=== PATIENT | female | born 1955 | race Caucasian/White ===

== ENCOUNTER → 2016-05-13 | Outpatient (CLI) | payer OTHER ==
[~2016-05-13] MED LIST: ALBU17I INH; AMBI5TAB PO; DICL1TAB63 PO; ESTR1TAB PO; IBUP200T2 PO; LORA-373 PO; LORA0.5T PO; MECL-62 PO; MEDR2.5T2 PO; POTA595T PO; PRAV40TA PO; PRAV40TA2 PO; PROV2.5T PO; REST30CA PO; TEMA30CA PO; VITA100018 PO; VITA2000 PO
[2016-05-13 07:31] LABS: HEMATOCRIT 37.3 % (35.0-46.0); MEAN CELL VOLUME 91.1 FL (80.0-100.0); MEAN CORPUSCULAR HEMOGLOBIN 31.7 PG (27.0-34.0); MEAN CORPUSCULAR HGB CONC 34.7 % (32.0-36.0); PLATELET COUNT 300 TH/MM3 (150-450); RED CELL DISTRIBUTION WIDTH 12.4 % (11.6-17.2); REVIEW FLAG FINAL; WHITE BLOOD COUNT 5.5 TH/MM3 (4.0-11.0)
[2016-05-13 07:50] LABS: POTASSIUM 3.6 MEQ/L (3.5-5.1)
[2016-05-13 08:01] LABS: HDL CHOLESTEROL 69.7 MG/DL (40.0-60.0); INDIRECT BILIRUBIN 0.8 MG/DL (0.0-0.8); TOTAL BILIRUBIN ADULT 0.9 MG/DL (0.2-1.0)
[2016-05-13 09:17] LABS: BACTERIA, URINE FEW /hpf; BLOOD, URINE TRACE (NEG); COMMENT (UR) CULT NOT INDICATED; CULTURE IF INDICATED CULT NOT INDICATED; GLUCOSE,URINE NEG (NEG); KETONE, URINE NEG (NEG); MUCUS URINE FEW /lpf (OCC); NITRITE,URINE NEG (NEG); PH, URINE 5.5 (5.0-8.5); SQUAMOUS EPITHELIAL CELL URINE 27 /hpf (0-5); TRANSITIONAL EPI CELLS, URINE <1 /hpf; URINE COLOR YELLOW (YELLW/STRAW)
== END ==
LOC: CLAB 06:53
PROVIDERS: ATTEND Family Medicine
DX: Z00.01 Encounter for general adult medical examination with abnormal findings (principal); Z11.59 Encounter for screening for other viral diseases
CPT/HCPCS: 36415; 80048; 80061; 80076; 81001; 84443; 85027; 86803

== ENCOUNTER → 2016-06-11 | Outpatient (CLI) | payer OTHER ==
[2016-06-11 13:08] LABS: INTERNATIONAL NORMALIZED RATIO 0.9 RATIO; PROTHROMBIN TIME - PATIENT 10.2 SEC (9.8-11.6)
[2016-06-11 13:09] LABS: BLOOD, URINE NEG (NEG); COMMENT (UR) CULT NOT INDICATED; CULTURE IF INDICATED CULT NOT INDICATED; GLUCOSE,URINE NEG (NEG); KETONE, URINE NEG (NEG); MUCUS URINE FEW /lpf (OCC); NITRITE,URINE NEG (NEG); PH, URINE 6.5 (5.0-8.5); SQUAMOUS EPITHELIAL CELL URINE 2 /hpf (0-5); URINE COLOR LIGHT-YELLOW (YELLW/STRAW)
--- NOTE | 2016-06-11 13:27 | RADRPT ---
EXAM DATE/TIME: 06/11/2016 13:05 [facility] COMPARISON: No previous studies available for comparison. INDICATIONS : Rule out communicable diseases. MEDICAL HISTORY : None. SURGICAL HISTORY : None. ENCOUNTER: Initial ACUITY: 1 day PAIN SCORE: 0/10 LOCATION: Bilateral chest FINDINGS: PA and lateral views of the chest demonstrate the lungs to be symmetrically aerated without evidence of mass, infiltrate or effusion. The cardiomediastinal contours are unremarkable. Osseous structure s are intact. CONCLUSION: No evidence of acute cardiopulmonary disease. Genaro Knott MD on June 11, 2016 at 13:25 Board Certified Radiologist. This report was verified electronically.
[2016-06-11 13:30] LABS: BICARBONATE 28.4 MEQ/L (21.0-32.0); POTASSIUM 3.7 MEQ/L (3.5-5.1)
== END ==
LOC: CPRE 11:29
PROVIDERS: ATTEND Orthopaedic Surgery
DX: Z01.812 Encounter for preprocedural laboratory examination (principal); S83.271D Complex tear of lateral meniscus, current injury, right knee, subsequent encounter
CPT/HCPCS: 36415; 71020; 80048; 81001; 85610

== ENCOUNTER → 2016-06-25 | Day surgery (SDC) | payer OTHER ==
--- NOTE | 2016-06-14 19:00 | MH ---
cc: LALITHA GARSIA M.D. DATE OF ADMISSION 06/25/2016 ADMITTING DIAGNOSIS Complex tear of the lateral meniscus right knee, chondromalacia right knee, chondromalacia patellae right knee, effusion right knee, loose body right knee. pain right knee. HISTORY OF THE PRESENT ILLNESS The patient is a 61-year-old white female who has had a lengthy history of pain involving her right knee. Her history extended back to approximately 12 years of age when she reports sustaining a fracture of her right knee which was treated by cast immobilization. Following this injury the patient was aware of stiffness about her knee for which she conformed to an exercise program under her own supervision. She did reasonably well for a number of years thereafter until the past two or more years when she began to experience generalized discomfort about her right knee unrelated to any current injury. She reports undergoing orthopedic evaluation at that time and was treated with repeated cortisone injections numbering at least five in total with only temporary benefit described. In January of 2015 she began to note increasing pain and swelling about her right knee for which she underwent additional orthopedic evaluation with repeat injection that unfortunately did not prove to be of any benefit. She continued to experience discomfort and subsequently underwent a CT scan which identified osteoarthritic findings with an associated joint effusion. The patient was later seen by the undersigned physician in April of 2015 and at that time her x-ray studies did reveal some narrowing about the medial compartment consistent with a localized degenerative process. The patient was prescribed diclofenac 75 mg and was followed on an outpatient basis thereafter. When seen in follow-up disposition she felt that the medication was affording her some benefit but did have an episode of elevated blood pressure that she was uncertain as to whether not may have been a side-effect of the medication. She did express her desire to proceed with a more definitive evaluation of her knee symptoms and thus, recommendation was made to undergo MRI scan examination the results of which identified osteoarthritic findings with a moderate-sized osteophyte and chondromalacia of a tricompartmental nature, a complex tear involving the anterior horn and body of the lateral meniscus was noted. A small joint effusion as well as a 7 mm intra-articular loose body was identified. The patient continued to note symptoms involving her right knee and expressed her desire to proceed with more definitive course of treatment. Involvement of arthroscopic surgery was outlined in detail with emphasis being made that the decision to proceed with surgery would be left entirely to the patient's discretion and that such an undertaking would not serve as a long-term solution to her underlying arthritic process. The patient indicated her full understanding in this regard and expressed her desire to proceed accordingly for which she is currently being admitted to the hospital in order that the above be accomplished. PAST MEDICAL HISTORY Her past medical history, hospitalizations and surgeries have included: 1. section. 2. Colonoscopy. 3. Excision of multiple skin cancers of the right upper extremity. 4. And medical evaluation for a suspected TIA with no positive findings being noted. The patient's current medical illnesses include: 1. A history of depression. 2. Asthma. MEDICATIONS Her current medications: 1. Diclofenac 75 mg. 2. Lorazepam 0.5 mg. 3. Estradiol 1 mg. 4. Medroxyprogesterone 2.5 mg. 5. Temazepam 30 milligrams. 6. Potassium gluconate 595 milligrams. 7. Vitamin D3 2000 international units. 8. Pravastatin 40 mg. 9. She also takes ibuprofen 200 mg p.r.n. ALLERGIES THE PATIENT DESCRIBES A DRUG ALLERGY TO BOTH PERCOCET AND PERCODAN BOTH OF WHICH HAVE BEEN ASSOCIATED WITH ITCHING. SHE HAS TOLERATED LORTAB WITHOUT ADVERSE SIDE EFFECT BEING NOTED. REVIEW OF SYSTEMS She does wear glasses. Denies headache, seizure or syncope. Occasional sinus congestion. No epistaxis. Auditory acuity intact. No tinnitus. No bleeding gums or dysphagia. Denies cough, shortness of breath, upper respiratory infection or pneumonia. No tuberculosis. No angina or heart disease. Her appetite is good. Bowel movements are regular. No hepatitis, gallbladder disease, ulcers or hemorrhoids. There is a history for urinary tract infection. No kidney stones. Fracture of her right knee and her left wrist treated nonoperatively. Psychiatric intervention for depression. Remaining review of systems is unremarkable and noncontributory. FAMILY HISTORY The patient has been for 20 years. She has a 38-year-old son who is indicated to be in good health. Family history is otherwise positive for hypertension and skin cancer. SOCIAL HISTORY The patient completed a high school education. 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 Denies active use of tobacco and ethanol. PHYSICAL EXAMINATION VITAL SIGNS: Height 5 feet 2 inches, weight 131 pounds. GENERAL: An alert, oriented and responsive 61-year-old white female who sits quietly upon examination table with no obvious distress. HEENT: Pupils are equal, round and reactive to light. Extraocular movements full. Sclerae clear. External nares clear. External auditory canals clear. Dental intact. Mucous membranes pink and moist. Pharynx clear. NECK: Supple. Active range of motion with no appreciable pain. Carotid pulse bilaterally. Trachea midline. Thyroid without enlargement. LUNGS: Clear to auscultation and percussion. No CVA tenderness. No discomfort throughout the dorsal lumbar spine. HEART: Regular rhythm. No murmur or gallop. ABDOMEN: Soft, nontender. Bowel sounds present. PELVIC: Per primary care physician. EXTREMITIES: Right knee no significant swelling or effusion. There is limited mobility at the extreme of flexion and mild discomfort associated. No collateral ligamentous instability. Apprehension and compression sign negative. There is lateral joint line tenderness without palpable deformity. Magdalena test and drawer sign negative. Pivot shift and Suraj sign positive for lateral compartment pain. Straight-leg raising unremarkable at 80 degrees. Independent gait. NEUROLOGICAL: Cranial nerves II-XII grossly intact. IMPRESSION Complex tear lateral meniscus right knee, chondromalacia right knee, chondromalacia patellae right knee, effusion right knee, loose body right knee, pain right knee. PLAN Arthroscopic surgery and possible arthrotomy right knee. The nature of the planned surgical procedure, the potential complications and risks associated, the expectations of surgery and the consent form were thoroughly reviewed with the patient prior to her admission to the hospital. Merari has indicated her full understanding regarding all of the above and given consent to proceed with treatment as outlined. Medical evaluation and clearance for surgery will be completed by her primary care physician Dr. Silvano Turner. MD ERIK Godoy/BELINDA /4:52 PM /5:38 PM
[~2016-06-25] VITALS: Ht 157.5 cm; Wt 59.9 kg
[~2016-06-25] MED LIST changes: +*morphine SULFATE 8 MG/ML PERIprocedure ONLY ONE; +ACETAMINOPHEN 1000 MG/100 ML VIAL IV ONE; +ACETAMINOPHEN/HYDROcodone 325 MG/5 MG TAB PO PRN; -ALBU17I INH; -AMBI5TAB PO; +DEXAMETHASONE SOD PHOS 4 MG/ML VIAL ONE; +DO NOT ADM ANY ANTICOAGULANT DRUGS XX PRN; +INSULIN HUMAN REGULAR 1,000 UNITS/10 ML VIAL SQ PRN; +KETOROLAC TROMETHAMINE 60 MG/2 ML (IM) VIAL IM ONE; +LACTATED RINGER'S 1000 ML IV SCH; +LIDOCAINE HCL 2% 20 ML VIAL INFIL ONE; -LORA0.5T PO; -MECL-62 PO; +METOPROLOL TARTRATE 25 MG TAB PO PRN; +MIDAZOLAM HCL 2 MG/2 ML VIAL ONE; +MORPHINE SULFATE 8 MG/ML INJ IM PRN; +ONDANSETRON HCL 4 MG/2 ML VIAL IV PUSH ONE; +POVIDONE IODINE 7.5% SCRUB 118 ML BOTTLE TOP SCH; -PRAV40TA PO; +PROPOFOL 200 MG/20 ML AMP IV ONE; -PROV2.5T PO; -REST30CA PO; +SODIUM CHLORID 0.9% 500 ML IV SCH; +TRIAMCINOLONE ACETONIDE 40 MG/ML VIAL I-SYNOVIAL ONE; -VITA100018 PO; +ceFAZolin 2 GM PREMIX 50 ML IV SCH; +ceFAZolin 2 GM PREMIX 50 ML ONE; +ePHEDrine/NS 25 MG/5 ML SYR IV ONE
[2016-06-25 08:33] VITALS: BP 145/96; PULSE 83; RESP 18; TEMP 98.9; O2SAT 100
[2016-06-25 13:05] VITALS: BP 158/65; PULSE 81; RESP 16; TEMP 97.5; O2SAT 97
--- NOTE | 2016-06-29 11:07 | MP ---
cc: LALITHA FINE DATE OF SURGERY 06/25/2016 PREOPERATIVE DIAGNOSIS A complex tear of the lateral meniscus right knee, chondromalacia right knee, chondromalacia patellae right knee, effusion right knee, loose body right knee, pain right knee. POSTOPERATIVE DIAGNOSIS A complex tear of the lateral meniscus right knee, chondromalacia right knee, chondromalacia patellae right knee, effusion right knee, loose body right knee, pain right knee including degenerative tear medial meniscus right knee. PROCEDURE Partial medial and lateral meniscectomy right knee with tricompartmental chondroplasty. SURGEON Lalitha Fine MD ANESTHESIA General by LMA FORMAT Following the induction of satisfactory general anesthesia by LMA insertion as completed per the Department of Anesthesia, examination of the right knee did reveal a satisfactory range of motion with no appreciable ligamentous instability. The extremity proper was positioned into the server service assistant knee rosenberg, prepped with Betadine solution and draped into a sterile field in the routine manner. Prior to initiation of the actual procedure, the standard time-out protocol was completed. All parameters were appropriately addressed and confirmed by operating room personnel. Arthroscopic instrumentation was introduced through a stab wound utilizing cannula with sharp and blunt trocar, the inflow irrigation by way of a medial suprapatellar portal, the arthroscope through a lateral parapatellar portal, a probe through a medial parapatellar portal. Examination of the suprapatellar pouch revealed significant synovial proliferation with reactive synovitis throughout. There were degenerative changes involving the patellofemoral articulation with several areas of complete erosion of articular cartilage along the femoral condyle. Within the medial compartment, a degenerative type tear of the medial meniscus was identified with associated cartilaginous irregularity involving both femoral condyle and tibial plateau. Fraying of the anterior cruciate ligament within the intercondylar region was appreciated with proliferative synovium extending into this area. Within the lateral compartment, a complex tear involving the body and anterior horn of the lateral meniscus was noted with associated degenerative changes throughout the lateral compartment. Utilizing a 3.8 aggressive resector, a partial lateral meniscectomy was accomplished, as well as chondroplasty debridement of femoral condyle and tibial plateau. Limited debridement within the intercondylar region as attention was directed to the medial compartment where the degenerative tear of the medial compartment was addressed by a partial meniscectomy with additional chondroplasty debridement throughout the medial compartment. The shaver was thereafter oriented into the suprapatellar region were reactive synovium was resected, as well as a chondroplasty of the patellofemoral joint. Upon completion of same, the joint space was thoroughly lavaged and suctioned dry. Arthroscopic portal sites were reapproximated with Steri-Strips over which Xeroform gauze and a bulky dry sterile dressing were placed. Anesthesia was discontinued and the patient thus transferred to a hospital stretcher and returned to the recovery room in satisfactory condition having tolerated her operative procedure well. Estimated blood loss was approximately 10 cc. MD ERIK Godoy/ISH /11:43 AM /10:59 AM
== END | disposition home or self-care (01) ==
LOC: HSDC 07:11
PROVIDERS: ATTEND Orthopaedic Surgery
DX: S83.271A Complex tear of lateral meniscus, current injury, right knee, initial encounter (principal); M94.261 Chondromalacia, right knee; M25.461 Effusion, right knee; M25.561 Pain in right knee; S83.203A Other tear of unspecified meniscus, current injury, right knee, initial encounter
CPT/HCPCS: 01400; 29880; G0289; J0131; J0690; J1100; J1885; J2250; J2270; J2405; J3010; J3301

== ENCOUNTER 2016-10-11 03:57 | Emergency (ER) | payer OTHER ==
[~2016-10-11] VITALS: Ht 167.6 cm; Wt 67.0 kg
[~2016-10-11 03:57] MED LIST changes: -*morphine SULFATE 8 MG/ML PERIprocedure ONLY ONE; -ACETAMINOPHEN 1000 MG/100 ML VIAL IV ONE; -ACETAMINOPHEN/HYDROcodone 325 MG/5 MG TAB PO PRN; -DEXAMETHASONE SOD PHOS 4 MG/ML VIAL ONE; -DO NOT ADM ANY ANTICOAGULANT DRUGS XX PRN; -INSULIN HUMAN REGULAR 1,000 UNITS/10 ML VIAL SQ PRN; -KETOROLAC TROMETHAMINE 60 MG/2 ML (IM) VIAL IM ONE; -LACTATED RINGER'S 1000 ML IV SCH; -LIDOCAINE HCL 2% 20 ML VIAL INFIL ONE; -METOPROLOL TARTRATE 25 MG TAB PO PRN; -MIDAZOLAM HCL 2 MG/2 ML VIAL ONE; -MORPHINE SULFATE 8 MG/ML INJ IM PRN; -ONDANSETRON HCL 4 MG/2 ML VIAL IV PUSH ONE; -POVIDONE IODINE 7.5% SCRUB 118 ML BOTTLE TOP SCH; -PROPOFOL 200 MG/20 ML AMP IV ONE; -SODIUM CHLORID 0.9% 500 ML IV SCH; -TRIAMCINOLONE ACETONIDE 40 MG/ML VIAL I-SYNOVIAL ONE; -ceFAZolin 2 GM PREMIX 50 ML IV SCH; -ceFAZolin 2 GM PREMIX 50 ML ONE; -ePHEDrine/NS 25 MG/5 ML SYR IV ONE
[2016-10-11 03:59] VITALS: BP 183/77; PULSE 85; RESP 16; TEMP 98; O2SAT 100
--- NOTE | 2016-10-11 04:17 | PD ---
HPI Chief Complaint: Edema Time Seen by Provider: 04:16 Travel History International Travel<30 days: No Contact w/Intl Traveler<30days: No Traveled to known affect area: No History of Present Illness HPI 61-year-old female came to the emergency room with significant pain in the bilateral lower extremity mainly her feet. Patient says that this has been going on for past week or so but worse last night which made it very difficult for her to fall asleep. I decided to come to the emergency room. 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 She says she has mentioned this to her primary care wanted to get an ultrasound done. Patient had a meniscal tear repair done few weeks ago of her right knee. She has history of Roman cyst behind her left knee. No history of chest pain or shortness of breath. She was hypertensive in triage upon arrival. [facility] Past Medical History Narrative Medical List of her past medical, surgical, social and family history is reviewed from the nursing note. Arthritis: Yes (NECK) Asthma: Yes Anxiety: Yes Depression: Yes Cancer: Yes (skin cancer) Cardiovascular Problems: No High Cholesterol: Yes Diabetes: No Diminished Hearing: No Endocrine: No Genitourinary: No Hepatitis: No Hiatal Hernia: No Immune Disorder: No Musculoskeletal: Yes (arthritis, bulging disc in neck) Neurologic: Yes (poss tia 10 years ago, temporary loss of partial vision and speech) Psychiatric: Yes (anxiety) Reproductive: No Respiratory: Yes (asthma) Seizures: Yes Thyroid Disease: No Menopausal: Yes : 1 Para: 1 Past Surgical History Abdominal Surgery: Yes (c section) Body Medical Devices: none, belly button ring taped Cardiac Surgery: No Section: Yes Ear Surgery: No Endocrine Surgery: No Eye Surgery: No Genitourinary Surgery: No Gynecologic Surgery: No Joint Replacement: No Oral Surgery: No Pacemaker: No Thoracic Surgery: No Social History Alcohol Use: Yes Tobacco Use: No Substance Use: No Allergies-Medications (Allergen,Severity, Reaction): Coded Allergies: Latex (Verified Allergy, Severe, Hives, 10/11/16) severe skin irritation Percocet (Verified Allergy, Severe, Itching, 10/11/16) Percodan (Verified Allergy, Severe, Itching, 10/11/16) Comments List of her allergies reviewed from the nursing note. Reported Meds & Prescriptions Reported Meds & Active Scripts Active Gabapentin 300 Mg Cap 300 Mg PO BID Reported Meloxicam 15 Mg Tab 15 Mg PO DAILY Celecoxib 200 Mg Cap 200 Mg PO DAILY [place] (Hydrocodone-Acetaminophen) 5-325 mg Tab 1 Tab PO DAILY PRN Ibuprofen 200 Mg Tab 200 Mg PO Q6H PRN Pravastatin 40 Mg Tab 40 Mg PO HS Vitamin D3 (Cholecalciferol) 2,000 Unit Cap 2,000 Units PO DAILY Potassium Gluconate 595 Mg Tab 1 Tab PO DAILY Temazepam 30 Mg Cap 30 Mg PO HS PRN Estradiol 1 Mg Tab 1 Mg PO DAILY Lorazepam 0.5 Mg Tab 0.5 Mg PO DAILY PRN Diclofenac-Misoprostol 75-0.2 Mg Tab 1 Tab PO BID Narrative Medication Just of her home medications reviewed from the nursing note. Review of Systems Except as stated in HPI: all other systems reviewed are Neg Physical Exam Narrative GENERAL: Awake, alert, moderate distress SKIN: Focused skin assessment warm/dry. HEAD: Atraumatic. Normocephalic. EYES: Pupils equal and round. No scleral icterus. No injection or drainage. ENT: No nasal bleeding or discharge. Mucous membranes pink and moist. NECK: Trachea midline. No JVD. CARDIOVASCULAR: Regular rate and rhythm. No murmur appreciated. RESPIRATORY: No accessory muscle use. Clear to auscultation. Breath sounds equal bilaterally. GASTROINTESTINAL: Abdomen soft, non-tender, nondistended. Hepatic and splenic margins not palpable. MUSCULOSKELETAL: No obvious deformities. No clubbing. No cyanosis. No edema. Right leg looks more swollen than the left. Good range of motion in both knee and ankle joints. Intact pulses and sensation distally. NEUROLOGICAL: Awake and alert. No obvious cranial nerve deficits. Motor grossly within normal limits. Normal speech. PSYCHIATRIC: Appropriate mood and affect; insight and judgment normal. Data Data Last Documented VS Vital Signs Date Time Temp Pulse Resp B/P Pulse Ox O2 Delivery O2 Flow Rate FiO2 10/11/16 04:47 74 15 150/70 100 Room Air 10/11/16 03:59 98.0 Orders Us Leg Venous Doppler Bilat (10/11/16 ) Ketorolac Inj (Toradol Inj) (10/11/16 04:30) MDM Medical Decision Making Medical Screen Exam Complete: Yes Emergency Medical Condition: Yes Medical Record Reviewed: Yes Differential Diagnosis DVT, arthritis, peripheral neuropathy Narrative Course 6:37 AM ultrasound of her bilateral legs show no DVT. Patient was given IM Toradol for pain. I'll discharge her home. She'll need to follow up with her primary care outpatient. Procedures EKG Prior to Arrival: No Diagnosis Primary Impression: Leg pain, bilateral Referrals: Primary Care Physician Additional Instructions: Please return to the ER if the condition worsens or any other new concerns. Otherwise follow-up with your primary care in next couple days. Take the medication as per the prescription direction. Med/Other Pt SpecificInfo: Prescription(s) given Scripts Gabapentin 300 Mg [id number] Mg PO BID #30 CAP Ref 0 Prov:Madisyn Randle MD 10/11/16 Disposition: 01 DISCHARGE HOME Condition: Stable Madisyn Randle MD Oct 11, 2016 04:16 Madisyn Randle MD Oct 11, 2016 04:16
[2016-10-11] MEDS ORDERED: KETOROLAC TROMETHAMINE 60 MG/2 ML (IM) VIAL IM ONE (04:30)
[2016-10-11] MEDS ORDERED: CELE1CAP8 PO (04:43)
[2016-10-11] MEDS ORDERED: MELO-1 PO (04:43)
[2016-10-11] MEDS ORDERED: NORC5TAB PO (04:43)
[2016-10-11 04:47] VITALS: BP 150/70; PULSE 74; RESP 15; O2SAT 100
--- NOTE | 2016-10-11 06:30 | RADRPT ---
EXAM DATE/TIME: 10/11/2016 05:36 [facility] COMPARISON: No previous studies available for comparison. INDICATIONS : Bilateral leg swelling. MEDICAL HISTORY : Hypercholesterolemia. . Arthritis. Seizures. Asthma. Depression. Anxiety. Skin cancer. SURGICAL HISTORY : section. Right knee surgery. ENCOUNTER: Initial ACUITY: 2 months PAIN SCORE: 4/10 LOCATION: Bilateral legs. TECHNIQUE: Venous ultrasound of the left and right leg was performed from the inguinal ligament to the proximal calf. Real-time, color Doppler and spectral tracing, compression and augmentation techniques were us ed. FINDINGS: RIGHT LEG: There is normal compressibility of the deep venous system from the inguinal region to the proximal ca lf. No echogenic clot is seen in the lumen of the common femoral, femoral, popliteal, and posterior tibial veins. There is a normal response of the venous system to proximal and distal augmentation an d respiration. LEFT LEG: There is normal compressibility of the deep venous system from the inguinal region to the proximal ca lf. No echogenic clot is seen in the lumen of the common femoral, femoral, popliteal, and posterior tibial veins. There is a normal response of the venous system to proximal and distal augmentation an d respiration. CONCLUSION: Normal examination. Bobby Terrell MD on October 11, 2016 at 6:29 Board Certified Radiologist. This report was verified electronically.
[2016-10-11] MEDS ORDERED: GABA300C5 PO (06:39)
== END 2016-10-11 06:53 | disposition home or self-care (01) ==
LOC: NEPC 03:57
DX: M79.605 Pain in left leg (principal); M79.604 Pain in right leg; J45.909 Unspecified asthma, uncomplicated; M13.80 Other specified arthritis, unspecified site; F41.9 Anxiety disorder, unspecified; F32.9 Major depressive disorder, single episode, unspecified; E78.00 Pure hypercholesterolemia, unspecified; R56.9 Unspecified convulsions; Z79.899 Other long term (current) drug therapy
CPT/HCPCS: 93970; 96372; 99285; J1885

== ENCOUNTER → 2016-10-15 | Outpatient (CLI) | payer OTHER ==
[~2016-10-15] MED LIST changes: +CELE1CAP8 PO; +GABA300C5 PO; -MEDR2.5T2 PO; +MELO-1 PO; +NORC5TAB PO
[2016-10-15 07:30] LABS: AUTOMATED NEUTROPHIL # 3.1 TH/MM3 (1.8-7.7); BASOPHIL % 0.7 % (0.0-2.0); EOSINOPHIL # 0.2 TH/MM3 (0-0.4); HEMATOCRIT 40.2 % (35.0-46.0); HEMO FLAGS DIFF FINAL; LYMPH % 33.6 % (9.0-44.0); MEAN CELL VOLUME 91.4 FL (80.0-100.0); MEAN CORPUSCULAR HGB CONC 32.8 % (32.0-36.0); NEUT % 52.7 % (16.0-70.0); PLATELET COUNT 288 TH/MM3 (150-450); RED CELL DISTRIBUTION WIDTH 12.7 % (11.6-17.2); WHITE BLOOD COUNT 5.9 TH/MM3 (4.0-11.0)
[2016-10-15 07:48] LABS: ANION GAP 8 MEQ/L (5-15); AST (GOT) 20 U/L (15-37); BICARBONATE 28.5 MEQ/L (21.0-32.0); BLOOD UREA NITROGEN 24 MG/DL (7-18); CHLORIDE 106 MEQ/L (98-107); GLOMERULAR FILTRATION RATE 85 ML/MIN (>89); GLUCOSE,FASTING 93 MG/DL (74-99); SODIUM (NA) 142 MEQ/L (136-145)
[2016-10-15 07:49] LABS: ALT (GPT) 18 U/L (10-53)
[2016-10-15 07:52] LABS: ALKALINE PHOSPHATASE 75 U/L (45-117); TOTAL BILIRUBIN ADULT 0.6 MG/DL (0.2-1.0)
== END ==
LOC: CLAB 06:47
PROVIDERS: ATTEND Family Medicine
DX: R60.0 Localized edema (principal)
CPT/HCPCS: 36415; 80053; 85025

== ENCOUNTER → 2016-11-02 | Outpatient (CLI) | payer OTHER ==
[2016-11-02 08:20] LABS: PROTHROMBIN TIME - PATIENT 10.5 SEC (9.8-11.6)
[2016-11-02 08:35] LABS: TRANSFERRIN IRON PROFILE 281 MG/DL (200-360)
[2016-11-04 03:51] LABS: RHEUMATOID FACTOR 9 IU/mL (<14)
[2016-11-04 09:52] LABS: VITAMIN B6 5.9 ng/mL (2.1-21.7)
[2016-11-04 11:52] LABS: COAG FACTOR VIII 162 (50-180)
[2016-11-04 17:52] LABS: VWF AG 181 % (50-217)
[2016-11-04 19:54] LABS: LYME DISEASE 18KD IGG BAND NON-REACTIVE (()); LYME DISEASE 23 IGG BAND REACTIVE (()); LYME DISEASE 23KD IGM BAND NON-REACTIVE (()); LYME DISEASE 28KD IGG BAND REACTIVE (()); LYME DISEASE 30KD IGG BAND NON-REACTIVE (()); LYME DISEASE 39 KD IGG BAND NON-REACTIVE (()); LYME DISEASE 39KD IGM BAND NON-REACTIVE (()); LYME DISEASE 41KD IGG BAND REACTIVE (()); LYME DISEASE 41KD IGM BAND NON-REACTIVE (()); LYME DISEASE 45KD IGG BAND NON-REACTIVE (()); LYME DISEASE 58KD IGG BAND NON-REACTIVE (()); LYME DISEASE 66KD IGG BAND REACTIVE (()); LYME DISEASE 93KD IGG BAND NON-REACTIVE (()); LYME DISEASE IGM WB NEGATIVE (())
[2016-11-05 03:52] LABS: DS DNA AB(CRITHIDIA) NEGATIVE (NEGATIVE); DS DNA AB(CRITHIDIA)TITER ND (<1:10)
[2016-11-07 03:52] LABS: ANA IFA PATTERN ND (()); ANA IFA TITER ND titer (()); ANA SER QL NEGATIVE (NEGATIVE); SJOGRENS AB SSA <1.0 NEG AI (<1.0 NEGATIVE); SJOGRENS AB SSB <1.0 NEG AI (<1.0 NEGATIVE)
== END ==
LOC: CLAB 07:25
PROVIDERS: ATTEND Family Medicine
DX: G60.9 Hereditary and idiopathic neuropathy, unspecified (principal); K06.8 Other specified disorders of gingiva and edentulous alveolar ridge; M79.605 Pain in left leg; R53.81 Other malaise
CPT/HCPCS: 36415; 82607; 82627; 83540; 83550; 84207; 84443; 85240; 85245; 85246; 85247; 85610; 85652; 85730; 86038; 86039; 86140; 86235; 86255; 86431; 86617

== ENCOUNTER → 2017-07-06 | Outpatient (CLI) | payer OTHER ==
[~2017-07-06] MED LIST changes: -IBUP200T2 PO; +IBUP200T47 PO; -LORA-373 PO; +LORA0.5T PO; -MELO-1 PO; +MELO15TA20 PO
[2017-07-06 07:07] LABS: HEMATOCRIT 39.6 % (35.0-46.0); HEMOGLOBIN 13.8 GM/DL (11.6-15.3); MEAN CELL VOLUME 92.1 FL (80.0-100.0); MEAN CORPUSCULAR HEMOGLOBIN 32.1 PG (27.0-34.0); MEAN CORPUSCULAR HGB CONC 34.9 % (32.0-36.0); MEAN PLATELET VOLUME 7.3 FL (7.0-11.0); PLATELET COUNT 304 TH/MM3 (150-450); RED CELL DISTRIBUTION WIDTH 13.4 % (11.6-17.2); WHITE BLOOD COUNT 5.1 TH/MM3 (4.0-11.0)
[2017-07-06 07:42] LABS: ALBUMIN 3.4 GM/DL (3.4-5.0); BICARBONATE 27.3 MEQ/L (21.0-32.0); CALCIUM 8.5 MG/DL (8.5-10.1); CREATININE 0.82 MG/DL (0.50-1.00); DIRECT BILIRUBIN ADULT 0.1 MG/DL (0.0-0.2)
[2017-07-06 07:53] LABS: CHOLESTEROL/ HDL RATIO 3.14 RATIO; HDL CHOLESTEROL 72.5 MG/DL (40.0-60.0); INDIRECT BILIRUBIN 0.6 MG/DL (0.0-0.8); TOTAL BILIRUBIN ADULT 0.7 MG/DL (0.2-1.0); TOTAL PROTEIN 7.1 GM/DL (6.4-8.2)
[2017-07-06 08:09] LABS: BACTERIA, URINE OCC /hpf; BILIRUBIN, URINE NEG (NEG); BLOOD, URINE NEG (NEG); GLUCOSE,URINE NEG (NEG); KETONE, URINE NEG (NEG); NITRITE,URINE NEG (NEG); PH, URINE 6.5 (5.0-8.5); SQUAMOUS EPITHELIAL CELL URINE 4 /hpf (0-5); URINE COLOR LIGHT-YELLOW (YELLW/STRAW); URINE LEUKOCYTE ESTERASE NEG (NEG)
== END ==
LOC: CLAB 06:45
PROVIDERS: ATTEND Family Medicine
DX: Z00.00 Encounter for general adult medical examination without abnormal findings (principal)
CPT/HCPCS: 36415; 80048; 80061; 80076; 81001; 84443; 85027